=== PATIENT | female | born 1975 | race Caucasian/White ===

== ENCOUNTER 2017-04-18 09:39 | Outpatient (CLI) | payer OTHER ==
[2017-04-18 11:44] LABS: #Eosinphils 0.1 thou/uL (0.0-0.7); #Monocytes 0.4 thou/uL (0.11-0.59); #Neutrophils 2.2 thou/uL (1.40-6.50); %Basophils 0.1 % (0.0-1.0); %Eosinophils 1.4 % (0.0-10.0); %Lymphocytes 43.5 % (21.0-51.0); %Monocytes 7.4 % (0.0-10.0); Hematocrit 36.9 % (36.0-47.0); Mean Platelet Volume 6.2 fL (7.4-10.4); Red Blood Cell (RBC) Count 3.95 mill/uL (4.20-5.40); White Blood Cell (WBC) Count 4.7 thou/uL (4.8-10.8)
[2017-04-18 12:07] LABS: Anion Gap 13 mmol/L (10-20); BUN (Urea Nitrogen) 9 mg/dL (7.0-18.7); Calc. Creatinine Clearance 0 mL/min (70-130); Calcium 9.3 mg/dL (7.8-10.44); Carbon Dioxide 22 mmol/L (22-29); Chloride 109 mmol/L (98-107); Estimated GFR-MDRD 67
--- NOTE | 2017-04-18 17:26 | OP ---
DATE OF SURGERY: 04/18/2017 PREOPERATIVE DIAGNOSIS: Ventral hernia. POSTOPERATIVE DIAGNOSIS: Ventral hernia. PROCEDURE: Da Ronnie laparoscopic ventral hernia repair with mesh 6 cm Ventralex. SURGEON: Clarence Buchanan MD ANESTHESIA: General. ESTIMATED BLOOD LOSS: Minimal. COMPLICATIONS: None. SPECIMEN: None. TECHNIQUE: The patient was taken to the operating room and placed supine on the table. After genera l anesthetic was obtained, a Braun was placed. The abdomen was prepped and draped in a sterile fashi on. Left subcostal 12-mm Ethicon Optiview trocar was placed in the usual fashion and high-flow pneum operitoneum was obtained. Left and right abdominal 8 mm robot trocars were placed. The patient was placed in slight Trendelenburg position. The patient had a lot of her preperitoneal fat up in the he rnia in the area of the umbilicus. The umbilical ligament and fat tissue was stuck up in the hernia as well. This was all reduced down and cautery was used to take it off of the posterior fascia. Thi s exposed the ventral umbilical defect that was closed by running a transverse V-Loc suture. This co mpletely closed the defect. A piece of 6 cm Ventralex mesh was brought into the abdominal cavity. T he mesh side was placed up against the posterior fascia the nonadherence side left down. The needle from the V-Loc was used to hold it up in the center over the closed defect. Running Stratafix suture was used to affix the mesh circumferentially to the posterior fascia by running it starting at the 1 2 o'clock position and running it all the way around and tying it to itself. The hernia defect was c ompletely closed, the mesh placed flat against the abdominal wall. There was no injury to any intraa bdominal structures. All needles were removed through the 12-mm trocar. All port sites were infiltr ated using local anesthetic. All ports were removed under direct visualization without bleeding. Pn eumoperitoneum was let down. GraNee needle and 0 Vicryl tie had been used to close the fascial defec t at the subcostal incision. A 4-0 Monocryl and Dermabond used to close all skin incisions. The pat ient was en route to recovery in stable condition. All instrument counts, needle counts, and lap cou nts were correct.
== END 2017-04-18 09:40 | disposition home or self-care (01) ==
LOC: LABBT 09:39
PROVIDERS: ATTEND Surgery
DX: Z01.812 Encounter for preprocedural laboratory examination (principal); K41.90 Unilateral femoral hernia, without obstruction or gangrene, not specified as recurrent
CPT/HCPCS: 80048; 84703; 85025

== ENCOUNTER 2017-04-21 11:34 | Day surgery (SDC) | payer OTHER ==
[2017-04-18 10:12] VITALS: BMI 25.5
[2017-04-21] MEDS ORDERED: CEFAZOLIN/Water 2 GM/20 ML SYRINGE ONE (12:28)
[2017-04-21] MEDS ORDERED: Fentanyl 100 MCG/2 ML VIAL ONE (13:40)
[2017-04-21] MEDS ORDERED: Midazolam HCl 2 mg/2 ml Vial ONE ×2 (13:45→14:01)
[2017-04-21] MEDS ORDERED: Bupivacaine/Epinephrine 0.25% 30 ML VIAL ONE (13:55)
[2017-04-21] MEDS ORDERED: Metoclopramide HCl 10 MG/2 ML VIAL ONE (14:13)
[2017-04-21] MEDS ORDERED: Lidocaine 1% PF 5 ML VIAL ONE (14:13)
[2017-04-21] MEDS ORDERED: Dexamethasone 20 MG/5 ML VIAL ONE (14:13)
[2017-04-21] MEDS ORDERED: Propofol 200 MG/20 ML VIAL ONE (14:13)
[2017-04-21] MEDS ORDERED: Bupivacaine PF 0.5% 30 ML VIAL ONE ×2 (14:41→15:20)
--- NOTE | 2017-04-21 17:12 | OP ---
DATE OF SERVICE: 04/21/2017 PREOPERATIVE DIAGNOSIS: Right inguinal hernia. POSTOPERATIVE DIAGNOSES: Right inguinal hernia plus lymphadenopathy. PROCEDURE: 1. Right inguinal hernia repair with mesh, preshaped polypropylene. 2. Excision lymph node, right groin. SURGEON: Clarence Buchanan M.D. ANESTHESIA: General. ESTIMATED BLOOD LOSS: Minimal. COMPLICATIONS: None. FINDINGS: There is a group of mildly enlarged lymph nodes in the right axilla in area of the patient 's palpable concern; this small area of lymph nodes, none of the lymph nodes in out themselves were m alignantly enlarged, but they were removed for pathology. The patient did have an indirect inguinal hernia. TECHNIQUE: The patient was taken to the operating room and placed supine on the table. After genera l anesthetic was obtained, the abdomen and the right groin was shaved, and draped in a sterile fashio n. Oblique incision was made above the pubic tubercle in the right lower quadrant. Cautery was used to dissect down through the external oblique. The inguinal ligament was dissected and exposed. The femoral canal was found. There was no hernia. In the patient's area of pain and palpable concern, t here was a mass of lymph nodes. These were removed very carefully without bleeding and sent to path fresh just to rule out any malignant lymphadenopathy. Next, the external oblique fibers were opened a long their course to the external ring. The round ligament was brought up using a Donato drain. It was cauterized and transected distally. The proximal and a small indirect hernia sac was dissected out and high ligation was performed using silk. The stump was inverted back into the indirect ring. The ilioinguinal nerve was found and segmentally high removed to prevent postop pain. The precut po lypropylene mesh was brought into the sterile field and an overlay in the inguinal floor was placed. It was sewn to the pubic tubercle distally, the shelving edge of the inguinal ligament laterally and the transverse arch medially using permanent braided suture. Local anesthetic was applied. Tunnele d catheter for postop pain is threaded above the incision and left on top of the mesh for postop pain control. External oblique and Irena were closed using 3-0 Vicryl. The skin was closed using runni ng 4-0 Monocryl and Dermabond. The patient was en route to recovery in stable condition. All instru ment counts, needle counts, and lap counts were correct.
== END 2017-04-21 16:18 | disposition home or self-care (01) ==
LOC: SDC 11:34
PROVIDERS: ATTEND Surgery
PROC: 0YU50JZ Supplement Right Inguinal Region with Synthetic Substitute, Open Approach (ICD-10-PCS; principal; 2017-04-21)
PROC: 07BH0ZX Excision of Right Inguinal Lymphatic, Open Approach, Diagnostic (ICD-10-PCS; principal; 2017-04-21)
DX: K40.30 Unilateral inguinal hernia, with obstruction, without gangrene, not specified as recurrent (principal); R59.0 Localized enlarged lymph nodes; M19.90 Unspecified osteoarthritis, unspecified site; Z79.3 Long term (current) use of hormonal contraceptives; Z96.9 Presence of functional implant, unspecified; Z98.890 Other specified postprocedural states
CPT/HCPCS: 88184; 88305; A4306; C1781; J1100; J2001; J2250; J2704; J2765; J3010; S0020

== ENCOUNTER 2019-12-20 06:46 | Outpatient (CLI) | payer BC, OTHER ==
[2019-12-20 14:01] LABS: BHCG - Serum Negative (NEGATIVE); Pregs Control Background? CLEAR/WHITE (CLR/WHITE); Pregs Control Bar Appear? YES (CONTROL BAR)
[2019-12-20 14:05] LABS: #Eosinphils 0.1 thou/uL (0.0-0.7); #Lymphocytes 2.1 thou/uL (1.20-3.40); #Monocytes 0.5 thou/uL (0.11-0.59); #Neutrophils 4.1 thou/uL (1.40-6.50); %Basophils 0.5 % (0.0-1.0); %Eosinophils 1.3 % (0.0-10.0); %Lymphocytes 31.2 % (21.0-51.0); %Monocytes 7.7 % (0.0-10.0); %Neutrophils 59.3 % (42.0-75.0); Hemoglobin 12.7 g/dL (12.0-16.0); Mean Corpuscular HGB CONC 33.7 g/dL (32.0-36.0); Mean Corpuscular Hemoglobin 31.6 pg (27.0-31.0); Mean Corpuscular Volume 93.8 fL (78.0-98.0); Platelet Count 292 thou/uL (130-400); RBC Distribution Width 11.2 % (11.5-14.5); Red Blood Cell (RBC) Count 4.03 mill/uL (4.20-5.40); White Blood Cell (WBC) Count 6.8 thou/uL (4.8-10.8)
[2019-12-21 12:21] LABS: SARS-CoV-2 MS2 Positive; SARS-CoV-2 N Gene Negative; SARS-CoV-2 S Gene Negative; SARS-CoV-2 orf1ab Negative
== END 2019-12-20 06:47 | disposition home or self-care (01) ==
LOC: LABBT 06:46
PROVIDERS: ATTEND Orthopaedic Surgery
DX: Z01.812 Encounter for preprocedural laboratory examination (principal); Z11.59 Encounter for screening for other viral diseases; M75.111 Incomplete rotator cuff tear or rupture of right shoulder, not specified as traumatic
CPT/HCPCS: 84703; 85025; 87635; U0003

== ENCOUNTER 2019-12-23 08:45 | Day surgery (SDC) | payer BC ==
[2019-12-17 09:19] VITALS: BMI 26.6
[2019-12-23] MEDS ORDERED: Ropivacaine 0.5% HCl/PF (150 MG/30 ML VIAL) ONE ×2 (09:27→09:28)
[2019-12-23] MEDS ORDERED: Ropivacaine 0.2% HCl/PF (40 MG/20 ML VIAL) ONE ×2 (09:27→09:28)
[2019-12-23] MEDS ORDERED: PROPOFOL 200 MG/20 ML VIAL ONE (09:28)
[2019-12-23] MEDS ORDERED: diphenhydrAMINE 50 MG/ML VIAL ONE (09:28)
[2019-12-23] MEDS ORDERED: Glycopyrrolate 0.2 MG/ML 5 ML SYRINGE ONE (09:28)
[2019-12-23] MEDS ORDERED: Rocuronium Bromide 10 MG/ML (10ML VIAL) ONE (09:28)
[2019-12-23] MEDS ORDERED: Dexamethasone 20 MG/5 ML VIAL ONE (09:28)
[2019-12-23] MEDS ORDERED: Ketorolac Tromethamine 30 MG/ML VIAL ONE (09:28)
[2019-12-23] MEDS ORDERED: Lidocaine 1% PF 5 ML VIAL ONE (09:28)
[2019-12-23] MEDS ORDERED: PHENYLEPHRINE-NS 100 MCG/ML 10 ML SYRINGE ONE (09:28)
[2019-12-23] MEDS ORDERED: EPHEDRINE 25 MG/5 ML SYRINGE ONE (09:28)
[2019-12-23] MEDS ORDERED: Fentanyl 100 MCG/2 ML VIAL ONE ×3 (10:40→14:49)
[2019-12-23] MEDS ORDERED: Midazolam HCl 2 mg/2 ml Vial ONE (10:40)
[2019-12-23] MEDS ORDERED: Ondansetron PF 4 MG/2 ML Vial IVP PRN (12:07)
[2019-12-23] MEDS ORDERED: Ropivacaine 0.2% 550 ML 550 ML NERVE BLCK SCH (12:07)
[2019-12-23] MEDS ORDERED: HYDROcodone/Acetaminophen 10/325 mg Tablet PO PRN ×2 (12:07)
[2019-12-23] MEDS ORDERED: traMADol HCl 50 MG TAB PO PRN ×2 (12:07)
[2019-12-23] MEDS ORDERED: Zolpidem Tartrate 5 MG TAB PO PRN (12:07)
[2019-12-23] MEDS ORDERED: Promethazine HCl 25 MG/ML VIAL IM PRN (12:07)
[2019-12-23] MEDS ORDERED: Fentanyl 100 MCG/2 ML VIAL IV PRN (12:08)
[2019-12-23] MEDS ORDERED: Lidocaine 1% w/Epinephrine 1:100K 20 ML VIAL ONE (12:58)
--- NOTE | 2019-12-23 20:01 | OP ---
DATE OF PROCEDURE: 12/23/2019 PREOPERATIVE DIAGNOSIS: Right high-grade partial-thickness rotator cuff tear supraspinatus. POSTOPERATIVE DIAGNOSES: 1. Right high-grade partial-thickness rotator cuff tear, greater than 50%. 2. Partial subscapularis tear less than 5%, not repairable. PROCEDURE PERFORMED: 1. Right rotator cuff repair. 2. Limited debridement of right subscapularis. NUMERICAL CONTROL LATHE OPERATOR: None. ANESTHESIA: Dr. Ananth Hensley. The patient received a general endotracheal intubation with interscalene block. ESTIMATED BLOOD LOSS: Less than 30 mL. ANTIBIOTICS: Ancef 2 g. IMPLANTS: Two 4.75 SwiveLock. COMPLICATIONS: None. HISTORY OF PRESENT ILLNESS: Mrs. Swift is a pleasant 44-year-old female, presenting with long history of right shoulder pain. The patient is active in Cross[employer]. She had pain with her activities. The Patient had MRA of her right shoulder showing a moderate undersurface tear of the supraspinatus tendon. After a period of conservative management, which she failed, she elected to proceed with surgical intervention. I discussed risks and benefits of right rotator cuff repair with possible biceps tenodesis and subacromial decompression as needed. I discussed risks and benefits to include pain, scar, bleeding, infection, damage to vital structures, decreased range of motion or strength, need for further surgery, blood clots, loss of life or limb. The patient understood risks and benefits and elected to proceed. DESCRIPTION OF PROCEDURE: Time-out was performed designating the patient's right upper extremity as the operative site based on site, consents, and marking. After time-out, the patient's posterior working portal and anterior working portal were placed under direct visualization with a spinal needle, looked within the joint. The patient had some fraying of her labrum, but there was no superior labral tear. The biceps looked good throughout its course. The subscapularis at the leading edge had just about a 5% tear. I used a graft to see if I could grab a component of it to tack it down into its footprint, but there was not enough tissue plane to tack down. Therefore, I debrided just the leading edge near its insertion of footprint. The biceps looked good and she appeared essentially reduced within its sling, reduced within the groove. The patient's undersurface tear was noted, which was debrided intra-articularly. I took a spinal needle and placed a Prolene in the large portion of the defect from the skin to allow myself to map out the tear. I then moved from the patient's intra-articular space showing no glenoid or humeral articular defects, moved subacromially. I debrided the bursa and placed a lateral working portal for my shaver to expose. I did remove all the bursa. After exposing the bursa, I looked at my spinal needle. As I probed across and where the Prolene was at, there was a soft spot which I fell into the defect. I created a little footprint both on the bone as well as the surface of the cuff. I placed an awl and tapped for 4.75 SwiveLock, passed 4 suture limbs from the back, tied them back to front for 2 horizontal mattress sutures and placed a lateral row to compress the anchor down laterally to help with compression of the cuff to the bone. I then cut the sutures, took final pictures, washed and closed with 2-0 nylon. ASSESSMENT AND PLAN: The patient will be discharged home. She will follow up me in 2 weeks. She will be on elbow, wrist, and hand motion, overhead activities, and remain in her sling until followup. Job ID: [id number]
== END 2019-12-23 17:12 | disposition home or self-care (01) ==
LOC: SDC 08:45
PROVIDERS: ATTEND Orthopaedic Surgery
PROC: 3E0T3BZ Introduction of Anesthetic Agent into Peripheral Nerves and Plexi, Percutaneous Approach (ICD-10-PCS; principal; 2019-12-23)
PROC: 0RNJ4ZZ Release Right Shoulder Joint, Percutaneous Endoscopic Approach (ICD-10-PCS; principal; 2019-12-23)
PROC: 0LQ14ZZ Repair Right Shoulder Tendon, Percutaneous Endoscopic Approach (ICD-10-PCS; principal; 2019-12-23)
DX: M75.111 Incomplete rotator cuff tear or rupture of right shoulder, not specified as traumatic (principal); G89.18 Other acute postprocedural pain; M19.90 Unspecified osteoarthritis, unspecified site; Z79.899 Other long term (current) drug therapy
CPT/HCPCS: A4306; C1713; J0690; J2250; J2795; J3010

== ENCOUNTER 2019-12-26 15:07 | Inpatient (IN) | payer BC, OTHER ==
[~2019-12-26 15:07] MED LIST: Iopamidol-370 76% 500 ML 1 ML ONE
[2019-12-26] MEDS ORDERED: Ketorolac Tromethamine 30 MG/ML VIAL ONE (16:06)
[2019-12-26 16:21] LABS: #Eosinphils 0.1 thou/uL (0.0-0.7); #Lymphocytes 1.5 thou/uL (1.20-3.40); #Monocytes 0.9 thou/uL (0.11-0.59); #Neutrophils 7.3 thou/uL (1.40-6.50); %Basophils 0.2 % (0.0-1.0); %Eosinophils 1.1 % (0.0-10.0); %Lymphocytes 15.1 % (21.0-51.0); %Monocytes 8.7 % (0.0-10.0); %Neutrophils 74.9 % (42.0-75.0); Hemoglobin 12.9 g/dL (12.0-16.0); Mean Corpuscular HGB CONC 33.2 g/dL (32.0-36.0); Mean Corpuscular Hemoglobin 31.3 pg (27.0-31.0); Mean Corpuscular Volume 94.4 fL (78.0-98.0); Mean Platelet Volume 6.2 fL (7.4-10.4); Platelet Count 213 thou/uL (130-400); RBC Distribution Width 11.1 % (11.5-14.5); White Blood Cell (WBC) Count 9.8 thou/uL (4.8-10.8)
[2019-12-26 16:24] LABS: Bilirubin Negative (Negative); Blood, Urine Negative (Negative); Clarity Clear (Clear); Glucose, Urine (Dipstick) Normal (Negative); Ketone, Urine Negative (Negative); Leukocyte Negative Leu/uL (Negative); Nitrite Negative (Negative); Protein, Urine (Dipstick) Negative (Neg-Trace); Specific Gravity, Urine 1.006 (1.002-1.036); Urobilinogen Normal mg/dL (Less than 2); pH, Urine 8.5 (5.0-9.0)
[2019-12-26 16:47] LABS: ALT (SGPT) 12 U/L (8-55); AST (SGOT) 19 U/L (5-34); Albumin 3.7 g/dL (3.5-5.0); Alkaline Phosphatase 43 U/L (40-110); Anion Gap 13 mmol/L (10-20); BUN (Urea Nitrogen) 14 mg/dL (7.0-18.7); Bilirubin, Total 0.4 mg/dL (0.2-1.2); Calc. Creatinine Clearance 0 mL/min (70-130); Calcium 8.8 mg/dL (7.8-10.44); Carbon Dioxide 25 mmol/L (22-29); Chloride 103 mmol/L (98-107); Estimated GFR-MDRD 57; Globulin 2.7 g/dL (2.4-3.5); Glucose 85 mg/dL (70-105); Potassium 3.9 mmol/L (3.5-5.1); Protein, Total 6.4 g/dL (6.0-8.3); Sodium 137 mmol/L (136-145)
[2019-12-26] MEDS ORDERED: Enoxaparin Sodium 80 MG/0.8 ML SYRINGE ONE (17:40)
[2019-12-26 17:57] LABS: Prothrombin Time 12.9 sec (12.0-14.7)
--- NOTE | 2019-12-26 19:07 | CT ---
CT ANGIO CHEST PERFORMED WITH INTRAVENOUS CONTRAST ENHANCEMENT AND 3D RECONSTRUCTIONS: History: Patient had rotator cuff repair on 12-23-2019 and was ==== interscalene block catheter today. FINDINGS: There are soft tissues changes in the right axillary region and air in the right supraclavicular demetris on compatible with recent surgery. There is a large right lobe thyroid nodule that measures approxim ately 2.4 cm and should be further investigated with ultrasound. There are subsegmental atelectatic changes in the right lung base. There is fairly good pulmonary artery opacification. There is extensive bilateral, predominately lowe r lobe emboli, but also upper lobe emboli bilaterally. . Pulmonary arteries not dilated. I do not see any definite signs for right heart strain. No significant periaortic or mesenteric adenopathy. Visualized liver parenchyma shows no focal findings. IMPRESSION: 1. Extensive bilateral pulmonary emboli. 2. 2.4 cm right lobe thyroid nodule which needs to be further investigated with ultrasound. 3. This report was telephoned to Dr. Adames at the time of dictation. Code T POS: ANTHONY
[2019-12-26] MEDS ORDERED: HYDROcodone/Acetaminophen 5/325 mg Tablet ONE (19:24)
[2019-12-26] MEDS ORDERED: Ondansetron PF 4 MG/2 ML Vial IVP PRN (19:42)
[2019-12-26] MEDS ORDERED: Ondansetron ODT 4 MG TAB PO PRN (19:42)
[2019-12-26] MEDS ORDERED: HYDROcodone/Acetaminophen 5/325 mg Tablet PO PRN (19:42)
[2019-12-26 20:46] VITALS: BMI 27.0
[2019-12-26 21:06] LABS: Troponin I Less than 0.010 ng/mL (< 0.028)
--- NOTE | 2019-12-26 21:54 | HP ---
PRIMARY CARE PHYSICIAN: Shyla Goldsmith in [place]. CHIEF COMPLAINT: "I passed out." HISTORY OF PRESENT ILLNESS: The patient is a very pleasant 44-year-old female with past medical history significant for right rotator cuff surgery three days ago and hypothyroidism. She presents to the ER today after she passed out when her nerve block was removed at home that had been placed when she had an outpatient right rotator cuff surgery. For the past few days, she has been experiencing some right-sided back pain, which she attributed to working out as she does [employer] regularly. She stated that she has been sleeping on the couch to try and alleviate the pain. She has been unable to take a deep breath for a couple days, which she thought was normal after her surgery. She denies any trauma. Today, whenever her removed the nerve block, she stated that she felt a little lightheaded, so she sat down and then she passed out. Her woke her up and EMS was already on the way. She had no recollection of that time when he was trying to wake her up. No injury during the syncopal episode. She denies any cough, fever, abdominal pain, chest pain, or diaphoresis. Denies the feeling of shortness of breath, but does state that she has been unable to take a deep breath for a few days.Today in the ER, they completed lab work, urinalysis, EKG, and a chest thorax CTA. PAST MEDICAL HISTORY: Hypothyroid. PAST SURGICAL HISTORY: Right rotator cuff, lumbar fusion, left knee scope, and left great toe pinned. ALLERGIES: NO KNOWN DRUG ALLERGIES. MEDICATIONS: 1. Levothroid 75 mcg daily. 2. Vitamin B12 of 1000 mcg daily. SOCIAL HISTORY: The patient lives at home with her . Drinks alcohol occasionally. Denies any drug or tobacco use. FAMILY HISTORY: Dad had heart problems. Daughter has pulmonary stenosis. REVIEW OF SYSTEMS: All other review of systems was negative unless noted in the HPI. PHYSICAL EXAMINATION: VITAL SIGNS: Blood pressure 103/70, pulse 68, respiratory rate 23, pain 10, and O2 saturation 100% on room air. GENERAL: The patient is alert and oriented to person, place, and time. Appears nontoxic. HEAD: Atraumatic and normocephalic. EYES: Extraocular muscles intact. PERRLA. NECK: Normal range of motion. No tenderness. RESPIRATORY: Shallow breathing. Equal breath sounds bilaterally. No wheezing. Mild tenderness to the right chest wall. CARDIOVASCULAR: Regular rate and rhythm. No murmurs, no rubs, no gallops. ABDOMEN: Nontender. No distention. Normal bowel sounds. UPPER EXTREMITIES: Three incisions with stitches to the right shoulder with mild ecchymosis. Pain with range of motion. LOWER EXTREMITIES: Normal range of motion. Posterior tibial and pedal pulses are normal. No edema. No cyanosis. NEURO: Oriented to person, place, and time. Speech normal. SKIN: Warm, dry, and intact. LABORATORY AND IMAGING DATA: EKG showed normal sinus rhythm, 68 beats per minute. Chest and thorax CTA shows extensive bilateral pulmonary emboli and a 2.4 cm right lobe thyroid nodule. Urinalysis shows no acute signs of infection. White blood cells 9.8, red blood cells 4.10, hemoglobin 12.9, and hematocrit 38.7. PT 12.9 , INR 1.0, and APTT 22.3. Sodium 137, potassium 3.9, chloride 103, BUN 14, creatinine 1.04, GFR 57, glucose 85, and troponin 0.020. IMPRESSION AND PLAN: Bilateral pulmonary emboli. We will start the patient on full-dose Lovenox b.i.d. We will continue to monitor O2 sats and vitals. We will treat the patient for pain and syncopal episode. We will obtain a carotid Doppler, echo, and orthostatic vital signs. Most likely from a vasovagal reaction when the nerve block was pulled however we do want to rule out any possible cardiac and neuro causes. There was a nodule on her thyroid that radiology feels should be followed up with ultrasound- will defer to day team on whether they want to pursue that inpatient or as an outpatient scan. Hypothyroidism, we will continue patient on her home medication. The patient will be on full dose Lovenox for bilateral PE and for further VTE prophylaxis. She will be on Pepcid twice a day for GI prophylaxis. Her surrogate decision maker is her , Kye. She wishes to be a full code. The patient has been discussed with Dr. Briones. Job ID: [id number] MTDD
[2019-12-26] MEDS: HYDROcodone/Acetaminophen 5/325 mg Tablet PO PRN (22:15)
[2019-12-26] MEDS: Docusate 100 MG CAP PO SCH (22:15)
[2019-12-26] MEDS: Famotidine 20 MG TAB PO SCH (22:15)
[2019-12-26 23:36] LABS: Troponin I 0.016 ng/mL (< 0.028)
[2019-12-27] MEDS: HYDROcodone/Acetaminophen 5/325 mg Tablet PO PRN ×5 (02:20→21:30)
[2019-12-27 04:22] LABS: #Eosinphils 0.1 thou/uL (0.0-0.7); #Monocytes 0.6 thou/uL (0.11-0.59); %Basophils 0.4 % (0.0-1.0); %Lymphocytes 29.8 % (21.0-51.0); %Neutrophils 58.7 % (42.0-75.0); Hemoglobin 11.1 g/dL (12.0-16.0); Mean Corpuscular HGB CONC 33.6 g/dL (32.0-36.0); Mean Corpuscular Hemoglobin 31.2 pg (27.0-31.0); Mean Platelet Volume 6.7 fL (7.4-10.4); Platelet Count 187 thou/uL (130-400); RBC Distribution Width 11.1 % (11.5-14.5); Red Blood Cell (RBC) Count 3.57 mill/uL (4.20-5.40); White Blood Cell (WBC) Count 6.8 thou/uL (4.8-10.8)
[2019-12-27 04:31] LABS: PTT 30.6 sec (22.9-36.1)
[2019-12-27 04:32] LABS: INR-International Normal Ratio 1.1; Prothrombin Time 13.8 sec (12.0-14.7)
[2019-12-27 04:40] LABS: Anion Gap 10 mmol/L (10-20); BUN (Urea Nitrogen) 10 mg/dL (7.0-18.7); Calc. Creatinine Clearance 97 mL/min (70-130); Calcium 8.2 mg/dL (7.8-10.44); Carbon Dioxide 24 mmol/L (22-29); Chloride 107 mmol/L (98-107); Estimated GFR-MDRD 74; Glucose 96 mg/dL (70-105); Potassium 3.8 mmol/L (3.5-5.1); Sodium 137 mmol/L (136-145)
--- NOTE | 2019-12-27 08:03 | PDOC.HOSPP ---
- Subjective Encounter Date: 12/27/19 Encounter Time: 08:03 Subjective: Mrs. Swift says she is doing well this morning. She states that she slept well once she was given her pain meds. She is still in 5/10 pain this morning after receiving her meds. She says that as her meds begin to wean off at the end of the 4 hour period she approaches 10/10 pain. The pain is located in her R shoulder from her procedure (s/p day 5 from rotator cuff surgery), as well as in both flanks and lateral ribs. She says that the flank pain is worse on her left and radiates down her leg, but she has a bone spur in her L SI joint so she commonly has similar pain on the left. She has mild discomfort on deep inspiration. Other pertinent PMHx includes hypothyroidism for which she takes levothyroxine at home. She denies any productive cough or hemoptysis, blood in the stool, palpitations , or dizziness. - Objective Vital Signs & Weight: Vital Signs (12 hours) Temp Pulse Resp BP Pulse Ox 12/27/19 04:15 98.1 F 49 L 14 105/65 97 12/26/19 20:43 98.0 F 62 14 114/77 98 Weight Weight 157 lb 9.6 oz Result Diagrams: 12/27/19 03:56 12/27/19 03:56 Additional Labs: labs and MARs reviewed by me EKG Reviewed by me: Yes (Tele: NSR) Hospitalist ROS - Review of Systems Eyes: denies: vision change Respiratory: reports: cough (nonproductive), shortness of breath. denies: hemoptysis, sputum Cardiovascular: denies: palpitations, edema Gastrointestinal: denies: vomiting, abdominal pain Neurological: denies: weakness, numbness - Medication Medications: Active Medications Generic Name Dose Route Start Last Admin Trade Name Freq PRN Reason Stop Dose Admin Hydrocodone Bitart/Acetaminophen 2 tab 12/26/19 19:42 12/27/19 07:12 [place] 5/325 PO 2 tab Q4H PRN Administration Severe Pain (7-10) Docusate Sodium 100 mg 12/26/19 21:00 12/26/19 22:15 Colace PO 100 mg BID MAYLIN Administration Famotidine 20 mg 12/26/19 21:00 07/26/20 22:15 Pepcid PO 20 mg BID MAYLIN Administration - Exam General Appearance: NAD, awake alert Neck: no thyromegaly Heart: RRR, no murmur Respiratory: CTAB, no tachypnea Extremities: no edema Hosp A/P - Plan Patient is a 44 yo female that presented to ED following syncope episode as her removed her scalene nerve block from her rotator cuff surgery. She was found to have bilateral PE. Bilateral PE * Echo performed to look for CV related causes of syncope and rule out other atrial emboli * Obtain carotid doppler and orthostatics * Patient currently on lovenox * Continue to monitor O2 sats and vitals * d/c oral contraceptives Postop shoulder surgery * Patient is currently on [place] but is still in severe pain * Possibly consider something stronger for adequate pain control Hypothyroidism * Obtain TSH and free T4 * Continue home levothyroxine Chart reviewed. Pt seen. Agree with findings and plan of care as documented by [facility]. Discussed with pt r: treatment options. Benefits, risks and side-effects of various anticoagulants were discussed. Pt wishes to start apixaban. Thyroid US ordered to evaluate thyroid nodule.
[2019-12-27] MEDS ORDERED: Enoxaparin Sodium 80 MG/0.8 ML SYRINGE SC SCH (09:00)
--- NOTE | 2019-12-27 09:02 | ULT ---
CAROTID DUPLEX ULTRASOUND: INDICATION: History of PE and syncope. COMPARISON: None. FINDINGS: There is mild intimal thickening involving the common carotid arteries. Peak systolic velocity in the right ICA was 79.5 cm/second and in the right CCA was 111.6 cm/second. The right ICA/CCA ratio was 0.71. Peak systolic velocity in the left ICA was 98.4 cm/second and in the left CCA was 110.6 cm/second. Th e left ICA/CCA ratio was 0.89. Antegrade flow was seen within both vertebral arteries. IMPRESSION: No hemodynamically significant stenosis. POS: BH
[2019-12-27] MEDS: Famotidine 20 MG TAB PO SCH ×2 (09:38→21:30)
[2019-12-27] MEDS: Docusate 100 MG CAP PO SCH ×2 (09:38→21:30)
[2019-12-27] MEDS ORDERED: Levothyroxine Sodium 75 MCG TAB PO SCH (11:45)
[2019-12-27 12:36] LABS: SARS-CoV-2 MS2 Positive; SARS-CoV-2 N Gene Negative; SARS-CoV-2 S Gene Negative; SARS-CoV-2 by NAA Not Detected (NotDetected); SARS-CoV-2 orf1ab Negative
[2019-12-27 14:58] LABS: BHCG - Serum Negative (NEGATIVE); Pregs Control Background? CLEAR/WHITE (CLR/WHITE); Pregs Control Bar Appear? YES (CONTROL BAR)
[2019-12-27 15:30] LABS: Thyroid Stimulating Hormone 1.8895 uIU/mL (0.35-4.94)
--- NOTE | 2019-12-27 18:01 | ULT ---
Exam: Thyroid ultrasound HISTORY: Evaluate thyroid nodules. COMPARISON: None TECHNIQUE: Sagittal and transverse imaging of thyroid gland is FINDINGS: Thyroid isthmus measures 0.22 cm Right thyroid lobe measures 1.9 x 4.5 x 1.3 cm Left thyroid lobe measures 4.0 x 1.5 x 1.1 cm Thyroid nodules: Right thyroid lobe: Mixed solid and cystic nodule measuring 2.8 x 1.9 x 1.9 cm. IMPRESSION: Predominant solid nodule in the right thyroid lobe. BI-RADS calculator TR 4 moderately sargent spicious. Fine-needle aspiration is recommended.
[2019-12-27] MEDS: Apixaban 5 MG TAB PO SCH (21:30)
[2019-12-28 04:56] LABS: #Eosinphils 0.2 thou/uL (0.0-0.7); #Lymphocytes 1.7 thou/uL (1.20-3.40); #Monocytes 0.5 thou/uL (0.11-0.59); #Neutrophils 3.5 thou/uL (1.40-6.50); %Basophils 0.6 % (0.0-1.0); %Eosinophils 2.7 % (0.0-10.0); %Lymphocytes 29.1 % (21.0-51.0); %Monocytes 9.1 % (0.0-10.0); %Neutrophils 58.4 % (42.0-75.0); Hemoglobin 10.7 g/dL (12.0-16.0); Mean Corpuscular HGB CONC 31.7 g/dL (32.0-36.0); Mean Corpuscular Hemoglobin 29.6 pg (27.0-31.0); Mean Corpuscular Volume 93.3 fL (78.0-98.0); Platelet Count 205 thou/uL (130-400); White Blood Cell (WBC) Count 5.9 thou/uL (4.8-10.8)
[2019-12-28 05:20] LABS: Anion Gap 10 mmol/L (10-20); BUN (Urea Nitrogen) 6 mg/dL (7.0-18.7); Calc. Creatinine Clearance 101 mL/min (70-130); Calcium 8.5 mg/dL (7.8-10.44); Carbon Dioxide 25 mmol/L (22-29); Chloride 105 mmol/L (98-107); Estimated GFR-MDRD 79; Glucose 109 mg/dL (70-105); Potassium 3.6 mmol/L (3.5-5.1); Sodium 136 mmol/L (136-145)
[2019-12-28] MEDS: HYDROcodone/Acetaminophen 5/325 mg Tablet PO PRN (05:37)
[2019-12-28] MEDS ORDERED: Levothyroxine Sodium 75 MCG TAB PO SCH (06:00)
[2019-12-28] MEDS ORDERED: Acetaminophen/Codeine 30-300mg Tablet PO PRN ×2 (07:42)
--- NOTE | 2019-12-28 07:47 | PDOC.HOSPP ---
- Subjective Encounter Date: 12/28/19 Encounter Time: 07:00 Subjective: Mrs. Swift is doing well this morning. She is still in 7/10 pain with deep inspiration. She did not sleep much last night due to caffeine intake around midnight. She is wanting to begin weaning herself off of the Keo, even though she is still in pain. Denies N/V, shortness of breath, dizziness, changes in vision or hearing. - Objective Vital Signs & Weight: Vital Signs (12 hours) Temp Pulse Resp BP Pulse Ox 12/28/19 04:48 98.1 F 50 L 17 114/66 98 12/27/19 21:00 98.1 F 60 14 112/65 98 Weight Weight 157 lb 9.6 oz I&O: 12/27/19 12/28/19 12/29/19 06:59 06:59 06:59 Intake Total 480 Balance 480 Result Diagrams: 12/28/19 04:00 12/28/19 04:00 Hospitalist ROS - Review of Systems Constitutional: denies: fever, chills, sweats Respiratory: reports: pleuritic pain. denies: cough, shortness of breath Cardiovascular: reports: chest pain (with deep inspiration). denies: light headedness Gastrointestinal: denies: nausea, vomiting Neurological: denies: weakness, numbness All other systems reviewed; all pertinent +/- noted in HPI/Subj - Medication Medications: Active Medications Generic Name Dose Route Start Last Admin Trade Name Freq PRN Reason Stop Dose Admin Apixaban 10 mg 12/27/19 21:00 12/27/19 21:30 Eliquis PO 10 mg BID MAYLIN Administration Docusate Sodium 100 mg 12/26/19 21:00 12/27/19 21:30 Colace PO 100 mg BID MAYLIN Administration Famotidine 20 mg 12/26/19 21:00 12/27/19 21:30 Pepcid PO 20 mg BID MAYLIN Administration Levothyroxine Sodium 75 mcg 12/28/19 06:00 12/28/19 05:38 Synthroid PO 75 mcg 0600 MAYLIN Administration - Exam General Appearance: NAD, awake alert Eye: PERRL, anicteric sclera Neck: supple, no JVD Heart: RRR, no murmur Respiratory: CTAB, no wheezes Gastrointestinal: non-tender, normal bowel sounds Extremities: no cyanosis, no edema Skin: normal turgor Neurological: cranial nerve grossly intact, no focal deficits Psychiatric: normal affect, normal behavior, A&O x 3 Hosp A/P - Plan Patient is a 44 yo female that presented to ED following syncope episode as her removed her scalene nerve block from her rotator cuff surgery. She was found to have bilateral PE. Bilateral PE * Echo performed to rule out CV related causes of syncope and rule out other atrial emboli * Carotid doppler showed no significant findings * Patient received lovenox yesterday, no longer receiving * Received first dose of apixiban this morning * Continue to monitor O2 sats and vitals * d/c oral contraceptives * CT w/ contrast of abdomen and pelvis ordered to rule out malignancy Postop shoulder surgery * d/c Keo, patient started on Tylenol 3 * Patient reports most of her pain is from pleuritic chest pain, not from her surgery * Ortho came and saw her yesterday and said they have no concerns Hypothyroidism * TSH was normal at 1.89 * Continue home levothyroxine * US showed a solid nodule in the R lobe of the thyroid, recommended FNA to be performed today Chart reviewed. Pt seen. Agree with findings and plan of care as documented by MS3. Discussed with pt r: treatment options. Benefits, risks and side-effects of various anticoagulants were discussed. Pt wishes to start apixaban. Thyroid US ordered to evaluate thyroid nodule.
[2019-12-28] MEDS ORDERED: Docusate 100 MG CAP PO SCH (08:45)
[2019-12-28] MEDS: Apixaban 5 MG TAB PO SCH (08:48)
[2019-12-28] MEDS: Famotidine 20 MG TAB PO SCH (08:48)
[2019-12-28] MEDS: Docusate 100 MG CAP PO SCH (08:50)
[2019-12-28] MEDS ORDERED: Cyanocobalamin (Vitamin B-12) 1,000 MCG TAB PO SCH (09:00)
[2019-12-28] MEDS ORDERED: Lidocaine 5% Patch TD SCH (09:00)
--- NOTE | 2019-12-28 11:37 | CT ---
CT ABDOMEN AND PELVIS WITH IV CONTRAST: Date: 12/28/2019 INDICATION: Assess for malignancy. Thyroid mass previously described. Correlation made to CT chest of 12/26/2019 which revealed bilateral pulmonary emboli and right lobe t hyroid mass. FINDINGS: Images through lung bases show small right effusion and right posterior lower lobe atelectasis, which has developed since the prior study. Liver, spleen, and pancreas appear unremarkable. There is a tiny, subcentimeter, low density focus in the more inferior left lobe of the liver which is indeterminate, possibly a tiny cyst. Stomach and duodenum unremarkable. Adrenal glands appear normal. Kidneys unremarkable. Small bowel loops appear normal. Colon unremarkable with prominent stool in the right colon. Aorta normal caliber. Images through the pelvis show mildly distended urinary bladder with mild urinary bladder wall thicke lance. Uterine fundus is mildly prominent. Adnexa appears unremarkable. There is small volume free flu id in the cul-de-sac. Osseous structures show postoperative changes at L5-S1 with pedicle screws and disc implant. IMPRESSION: 1. Small right pleural effusion and right lung base atelectasis has occurred since recent CT. 2. Mildly prominent uterus and small amount of free fluid in the cul-de-sac. 3. Otherwise no acute intra-abdominal process identified. POS: AH
--- NOTE | 2019-12-28 14:54 | DIS ---
DATE OF ADMISSION: 12/26/2019 DATE OF DISCHARGE: 12/28/2019 PRIMARY CARE PROVIDER: Candace Goldsmith MD DISCHARGE DIAGNOSES: 1. Pulmonary embolism. 2. Thyroid nodule. 3. COVID test, negative. CONDITION: Condition of the patient on the day of discharge: Stable. I assessed Ms. Swift on the day of discharge. Please refer to my daily progress note for further details regarding this [id number] encounter. CONSULTATIONS DURING THIS HOSPITALIZATION: ENT, Dr. Valente Aguilar. DISCHARGE MEDICATIONS: 1. Apixaban 10 mg 2 times a day for 6 more days, followed by 5 mg two times a day. 2. Tylenol No. 3 one tablet every 6 hours as needed. 3. Synthroid 75 mcg daily. 4. Vitamin B12 of 1000 mcg daily. She has been advised to discontinue oral contraceptives. HOSPITAL COURSE: Ms. Swift is a pleasant 44-year-old lady, who was admitted to [facility] on December 26, 2019, for bilateral pulmonary emboli. She was initially treated with Lovenox. After discussion with the patient, she opted to be treated with apixaban after discussing risks versus benefits of various anticoagulants. CT angiogram of the chest done at the time of admission also showed thyroid nodule. She had a normal TSH. She went on to have thyroid ultrasound, which showed predominant solid nodule in the right thyroid lobe, BI-RADS calculator TR4, moderately suspicious. Fine-needle aspiration was recommended. She was seen by ENT Service. She is being scheduled for biopsy as outpatient. She also had CT scan of the abdomen and pelvis, which showed a small right pleural effusion and right lung base atelectasis, mildly prominent uterus and small amount of free fluid in the cul-de-sac, otherwise no acute intraabdominal process. POST-ACUTE CARE FOLLOWUP: With primary care provider in [address] Aguilar in 1 week. ACTIVITY: No restrictions. DIET: Regular. DISCHARGE DESTINATION: Home. TIME SPENT: Total amount of time spent in coordinating this discharge: 25 minutes. Job ID: [id number]
[2019-12-28] MEDS ORDERED: Iopamidol 370 76% 100 ML VIAL ONE (15:38)
[2019-12-28 16:23] VITALS: BP 112/69; TEMP 97.6
[2019-12-28] MEDS ORDERED: Lidocaine Patch Removal 1 EACH TOP SCH (21:00)
--- NOTE | 2019-12-30 06:20 | CON ---
DATE OF CONSULTATION: CHIEF COMPLAINT: Thyroid mass and shoulder pain as well as syncope. HISTORY OF PRESENT ILLNESS: A 44-year-old female patient, presenting to the ER today after she passed out when a nerve block was removed at home, that had been placed when she had an outpatient rotator cuff surgery. She has been experiencing some significant pain recently and has attributed to her vigorous exercise activity, but because of her significant pain and syncope, she was presented and then admitted to the hospital for workup. During her workup, which included imaging in the hospital, imaging noted a thyroid irregularity and thyroid mass, and ENT was consulted for further evaluation. PAST MEDICAL HISTORY: Hypothyroidism, and shoulder and arm pain. PAST SURGICAL HISTORY: Rotator cuff surgery, lumbar fusion, left knee arthroscopy, and foot surgery. ALLERGIES: NO KNOWN DRUG ALLERGIES. CURRENT MEDICATIONS: 1. Levothyroxine 75 mcg daily. 2. Vitamin B12, 1000 mcg daily. SOCIAL HISTORY: The patient lives at home with family and drinks a small amount of alcohol occasionally and has no tobacco or illicit drug use. FAMILY HISTORY: Noncontributory. REVIEW OF SYSTEMS: SKIN: Negative. EYES: Negative. EARS, NOSE, AND THROAT: Please see HPI, otherwise negative. RESPIRATORY: Negative. CARDIOVASCULAR: Negative. GASTROINTESTINAL: Negative. MUSCULOSKELETAL: Positive for rotator cuff pain. NEUROLOGIC: Negative. HEMATOLOGIC/LYMPHATIC/IMMUNOLOGIC: Negative. ENDOCRINE: Negative. PHYSICAL EXAMINATION: GENERAL: No acute distress. Alert and oriented x3. HEAD AND FACE: Normocephalic and atraumatic. No facial skin lesions. No maxillary tenderness. No frontal tenderness. No parotid gland masses or tenderness. No submandibular gland masses or tenderness. Eyes; pupils are equally round and reactive to light. Extraocular movements are intact and no nystagmus on lateral gaze. EARS: Right and left pinna are normal. EACs are clear. Tympanic membranes are intact with normal landmarks. No evidence of effusion or infection. NOSE : External nose is normal. Nasal mucosa is healthy. Turbinates are healthy. No masses or lesions. ORAL CAVITY: Lips, teeth, and gums are normal. Oral mucosa is moist without lesions. Tongue and floor of mouth are soft without masses. Palate and uvula without lesions with symmetric elevation. NECK: No significant lymphadenopathy. Trachea is midline. However, there is a thyroid fullness and then there is a mass that is palpable on the right side more than the left side that elevates and moves with deglutition and it is not fluctuant. There is no evidence of cellulitis or infection. NEUROLOGIC: Cranial nerves 2 through 12 are grossly intact. Mood and affect are normal. RADIOLOGY: Thyroid ultrasound performed, which shows a right thyroid lobe which measures 1.9 x 1.5 x 1.3 cm and the left thyroid lobe which measures 4.1 x 1.5 x 1.1 cm. There is right thyroid lobe, which is a mixed solid and cystic node, predominantly solid node on the right side with a BI-RADS score of T4 and recommend fine-needle aspiration. ASSESSMENT AND PLAN: A 44-year-old female patient with significant pain, status post rotator cuff surgery and syncope, which is now under better control with significant palpable thyroid nodule with a BI-RADS score of T4, recommending FNA. Given, the patient's history and hypothyroidism, we would recommend a fine- needle aspiration, which has been ordered by my team and then follow up as an outpatient for further evaluation of the pathologic results. Given the patient's age, hypothyroidism, and score, if the FNA results are suspicious of malignancy, we would recommend a thyroid lobectomy. However, if results are benign and the patient is asymptomatic, we would not recommend surgery. If monitoring and observation over time shows that the thyroid nodule is increasing in size and causing compressive symptoms, we would recommend a thyroid lobectomy for alleviation of compressive symptoms. The patient has been given follow up information and an order has been placed for an outpatient FNA. However, if any questions remain, please call [phone] for further information. Thank you for this consultation. Job ID: [id number] [facility] HEALTH SERVICESJuancarlos
--- NOTE | 2019-12-30 08:34 | PQF ---
CLINICAL DOCUMENTATION CLARIFICATION FORM: Dear : Marco Dominguez Date / Time: 12/30/19833 Please exercise your independent, professional judgment in responding to the clarification form. Clinical indicators are provided on the bottom of this form for your review Please check appropriate box(es): [ ] Pulmonary Embolism is a postoperative complication of Shoulder Surgery [ x ] Pulmonary Embolism is not a postoperative complication of Shoulder Surgery [ ] Other diagnosis [ ] Unable to determine Physician Signature: Date/Time: For continuity of documentation, please document condition throughout progress notes and discharge summary. Thank You To be completed by CDI/Coding staff for physician review: Present Clinical Indicators - Signs / Symptoms / Labs Results and Location in Medical Record [X] PT 12.9, INR 1.0, APTT 22.3 Laboratory Coagulation 12/25 [X] BP 114/77, Pulse 62, Resp 14, Temp 98.0 Vital signs 12/25 [X] CT chest/thorax Impression: Extensive Bilateral Pulmonary emboli Imaging Dr Ramirez 12/26 [X] history of significant for right rotator cuff surgery three days ago H&P p1 12/25 Dr Lr [X] has been experiencing some right side back pain H&P p1 12/25 Dr Lr [X] Bilateral Pulmonary emboli H&P p2 12/25 Dr Lr [X] She states she is been having right sided chest wall pain that is much worse whenever she takes a deep breath ED Notes 12/25 Present Risk Factors Results and Location in Medical Record [X] s/p right rotator cuff surgery Imaging Dr Ramirez 12/26 [X] Atelectasis DS 12/27 Present Treatments Results and Location in Medical Record [X] Narco 5/325 1 tab AUG 06 [X] Eliquis 10 mg oral AUG 06 [X] Lovenox 80 mg SC AUG 06 [X] CT chest/thorax Imaging Dr Ramirez 12/26 [employer] Signature: Diana Camposmarry Phone #: [phone] Date/Time: 12/30/19833 This is a permanent part of the Medical Record [facility]
== END 2019-12-28 16:15 | disposition home or self-care (01) | DRG 176 ==
LOC: ERS 15:07 → 2NO 18:08
PROVIDERS: ADMIT Internal Medicine; ATTEND Internal Medicine
DX: I26.99 Other pulmonary embolism without acute cor pulmonale (principal); J90 Pleural effusion, not elsewhere classified; J98.11 Atelectasis; E04.1 Nontoxic single thyroid nodule; E03.9 Hypothyroidism, unspecified; Z11.59 Encounter for screening for other viral diseases; Z98.1 Arthrodesis status; Z79.890 Hormone replacement therapy
CPT/HCPCS: 36415; 71275; 74177; 76536; 80048; 80053; 81003; 84443; 84484; 84703; 85025; 85610; 85730; 87635; 93005; 93306; 93880; 96372; 96374; A4306; C1713; J0690; J1100; J1200; J1650; J1885; J2250; J2704; J2795; J3010; Q9967; U0003

== ENCOUNTER 2020-04-25 10:51 | Outpatient (CLI) | payer BC ==
--- NOTE | 2020-04-25 11:19 | RAD ---
EXAM: Two views chest PROVIDED CLINICAL HISTORY: Dyspnea COMPARISON: None FINDINGS: Cardiac and mediastinal silhouette appears within normal limits. Lungs appear free of significant opa city. No pleural fluid or pneumothorax apparent. IMPRESSION: No evidence for an acute cardiopulmonary process.
== END 2020-04-25 10:52 | disposition home or self-care (01) ==
LOC: BICRAD 10:51
PROVIDERS: ATTEND Internal Medicine Critical Care Medicine
DX: R06.00 Dyspnea, unspecified (principal)
CPT/HCPCS: 71046

== ENCOUNTER 2020-11-18 21:13 | Emergency (ER) | payer BC ==
[2020-11-18 22:30] LABS: #Basophils 0.1 thou/uL (0.0-0.2); #Eosinphils 0.2 thou/uL (0.0-0.7); #Lymphocytes 2.5 thou/uL (1.20-3.40); #Monocytes 0.6 thou/uL (0.11-0.59); #Neutrophils 2.3 thou/uL (1.40-6.50); %Basophils 1.3 % (0.0-1.0); %Eosinophils 3.3 % (0.0-10.0); %Lymphocytes 44.6 % (21.0-51.0); %Monocytes 10.2 % (0.0-10.0); %Neutrophils 40.7 % (42.0-75.0); Hemoglobin 12.4 g/dL (12.0-16.0); Mean Corpuscular HGB CONC 34.7 g/dL (32.0-36.0); Mean Corpuscular Hemoglobin 31.8 pg (27.0-31.0); Mean Corpuscular Volume 91.7 fL (78.0-98.0); Mean Platelet Volume 6.7 fL (7.4-10.4); Platelet Count 305 thou/uL (130-400); RBC Distribution Width 12.3 % (11.5-14.5); White Blood Cell (WBC) Count 5.6 thou/uL (4.8-10.8)
[2020-11-18 22:51] LABS: ALT (SGPT) 22 U/L (8-55); AST (SGOT) 26 U/L (5-34); Albumin 4.6 g/dL (3.5-5.0); Alkaline Phosphatase 47 U/L (40-110); Anion Gap 13 mmol/L (10-20); BUN (Urea Nitrogen) 20 mg/dL (7.0-18.7); Bilirubin, Total 0.4 mg/dL (0.2-1.2); Calc. Creatinine Clearance 0 mL/min (70-130); Calcium 9.9 mg/dL (7.8-10.44); Carbon Dioxide 26 mmol/L (22-29); Chloride 105 mmol/L (98-107); Glucose 99 mg/dL (70-105); Potassium 4.3 mmol/L (3.5-5.1); Protein, Total 7.6 g/dL (6.0-8.3); Sodium 140 mmol/L (136-145)
[2020-11-18 23:44] LABS: INR-International Normal Ratio 2.4; PTT 32.3 sec (22.9-36.1); Prothrombin Time 26.6 sec (12.0-14.7)
[2020-11-19 00:22] LABS: Bilirubin Negative (Negative); Blood, Urine 1+ (Negative); Clarity Clear (Clear); Glucose, Urine (Dipstick) Normal (Negative); Ketone, Urine Negative (Negative); Leukocyte 25 Leu/uL (Negative); Nitrite Negative (Negative); Protein, Urine (Dipstick) Negative (Neg-Trace); RBC/HPF 0-3 HPF (0-3); Specific Gravity, Urine 1.008 (1.002-1.036); Squamous Epithelial 0-3 HPF (0-3); Urobilinogen Normal mg/dL (Less than 2); WBC/HPF 0-3 HPF (0-3); pH, Urine 6.5 (5.0-9.0)
[2020-11-19 00:23] LABS: Bacteria/HPF Rare-Few HPF (None Seen); Pregnancy Test - Urine (BHCG) Negative (Negative); Pregu Control Background? CLEAR/WHITE (CLR/WHITE); Pregu Control Bar Appear? YES (CONTROL BAR); Specific Gravity 1.008 (1.002-1.036)
== END 2020-11-19 02:06 | disposition home or self-care (01) ==
LOC: ERS 21:13
DX: R07.89 Other chest pain (principal); R10.9 Unspecified abdominal pain; Z86.711 Personal history of pulmonary embolism; Z79.01 Long term (current) use of anticoagulants; Z79.899 Other long term (current) drug therapy
CPT/HCPCS: 36415; 71045; 71275; 74177; 80053; 81003; 81015; 81025; 84484; 85025; 85379; 85610; 85730; 93005; Q9967

== ENCOUNTER 2022-02-15 15:46 | Outpatient (CLI) | payer OTHER ==
[2022-02-15 17:11] LABS: #Eosinphils 0.2 10x3/uL (0.0-0.5); #Monocytes 0.5 10x3/uL (0.0-1.1); %Basophils 0.8 % (0.0-2.0); %Eosinophils 4.9 % (0.0-6.0); %Lymphocytes 43.2 % (18.0-47.0); %Monocytes 9.3 % (0.0-10.0); %Neutrophils 41.8 % (40.0-75.0); Hemoglobin 11.6 g/dL (12.0-15.5); Mean Corpuscular HGB CONC 35.3 g/dL (32.0-36.0); Mean Corpuscular Hemoglobin 30.8 pg (27.0-33.0); Mean Corpuscular Volume 87.3 fl (81.6-98.3); Mean Platelet Volume 8.9 fl (7.4-10.4); Platelet Count 286 10x3/uL (150-450); RBC Distribution Width 12.4 % (11.5-14.5); Red Blood Cell (RBC) Count 3.77 10x6/uL (3.90-5.03); White Blood Cell (WBC) Count 4.9 10x3/uL (3.5-10.5)
[2022-02-15 17:30] LABS: INR-International Normal Ratio 2.9; Prothrombin Time 29.5 sec (9.5-12.1)
[2022-02-15 17:32] LABS: BHCG - Serum Negative (NEGATIVE); Pregs Control Background? CLEAR/WHITE (CLR/WHITE); Pregs Control Bar Appear? YES (CONTROL BAR)
== END 2022-02-15 15:47 | disposition home or self-care (01) ==
LOC: LABBT 15:46
PROVIDERS: ATTEND Orthopaedic Surgery
DX: Z01.812 Encounter for preprocedural laboratory examination (principal); M23.306 Other meniscus derangements, unspecified meniscus, right knee; Z20.822 Contact with and (suspected) exposure to COVID-19
CPT/HCPCS: 84703; 85025; 85610; 85730; 87811

== ENCOUNTER 2022-02-20 08:22 | Day surgery (SDC) | payer OTHER ==
[2022-02-19 11:40] VITALS: BMI 26.6
[2022-02-20] MEDS ORDERED: PROPOFOL 20 ML ONE (09:34)
[2022-02-20] MEDS ORDERED: Lidocaine 2% PF 5 ML VIAL ONE (09:35)
[2022-02-20 10:16] LABS: Prothrombin Time 13.3 sec (12.0-14.7)
[2022-02-20 10:17] LABS: PTT 24.7 sec (22.9-36.1)
[2022-02-20] MEDS ORDERED: fentaNYL Citrate/PF 100 MCG/2 ML SYRINGE ONE (11:27)
[2022-02-20] MEDS ORDERED: Sodium Chloride 0.9% 100 ML ONE (11:36)
[2022-02-20] MEDS ORDERED: CEFAZOLIN 2 GM VIAL ONE (11:36)
[2022-02-20] MEDS ORDERED: Glycopyrrolate 0.2 MG/ML 5 ML SYRINGE ONE (11:44)
[2022-02-20] MEDS ORDERED: Lidocaine 2% 20 ml MDV ONE (11:44)
[2022-02-20] MEDS ORDERED: Lidocaine 1% MPF 2 ML VIAL ONE (11:44)
[2022-02-20] MEDS ORDERED: Dexamethasone 20 MG/5 ML VIAL ONE (11:44)
[2022-02-20] MEDS ORDERED: Bupivacaine HCl 0.5%/Epinephrine 1:200,000/PF 30 ml Vial ONE (11:44)
[2022-02-20] MEDS ORDERED: PROPOFOL 200 MG/20 ML VIAL ONE (11:44)
[2022-02-20] MEDS ORDERED: Fentanyl 100 MCG/2 ML VIAL ONE (13:17)
== END 2022-02-20 15:12 | disposition home or self-care (01) ==
LOC: SDC 08:22
PROVIDERS: ATTEND Orthopaedic Surgery
PROC: 0SBC4ZZ Excision of Right Knee Joint, Percutaneous Endoscopic Approach (ICD-10-PCS; principal; 2022-02-20)
PROC: 0SCC4ZZ Extirpation of Matter from Right Knee Joint, Percutaneous Endoscopic Approach (ICD-10-PCS; principal; 2022-02-20)
DX: M79.4 Hypertrophy of (infrapatellar) fat pad (principal); M23.41 Loose body in knee, right knee; M22.41 Chondromalacia patellae, right knee; M19.90 Unspecified osteoarthritis, unspecified site; Z86.711 Personal history of pulmonary embolism; Z79.01 Long term (current) use of anticoagulants; Z79.890 Hormone replacement therapy; Z79.899 Other long term (current) drug therapy
CPT/HCPCS: 85610; 85730; J0690; J1100; J2001; J2704; J3010; J3490

== ENCOUNTER 2022-02-24 18:58 | Observation (INO) | payer OTHER ==
[2022-02-24 19:52] LABS: #Eosinphils 0.3 thou/uL (0.0-0.7); #Lymphocytes 2.9 thou/uL (1.20-3.40); #Monocytes 0.6 thou/uL (0.11-0.59); #Neutrophils 2.1 thou/uL (1.40-6.50); %Basophils 0.6 % (0.0-1.0); %Eosinophils 4.7 % (0.0-10.0); %Lymphocytes 49.4 % (21.0-51.0); %Monocytes 9.5 % (0.0-10.0); %Neutrophils 35.9 % (42.0-75.0); Hemoglobin 11.9 g/dL (12.0-16.0); Mean Corpuscular HGB CONC 34.9 g/dL (32.0-36.0); Mean Corpuscular Hemoglobin 32.6 pg (27.0-31.0); Mean Corpuscular Volume 93.3 fL (78.0-98.0); Mean Platelet Volume 6.4 fL (7.4-10.4); Platelet Count 266 thou/uL (130-400); RBC Distribution Width 11.3 % (11.5-14.5); Red Blood Cell (RBC) Count 3.66 mill/uL (4.20-5.40); White Blood Cell (WBC) Count 5.8 thou/uL (4.8-10.8)
[2022-02-24] MEDS ORDERED: diphenhydrAMINE 50 MG/ML VIAL ONE (19:57)
[2022-02-24] MEDS ORDERED: Metoclopramide HCl 10 MG/2 ML VIAL ONE (19:57)
[2022-02-24] MEDS ORDERED: methylPREDNISolone Sod Succ/PF 125 MG/2 ML VIAL ONE (19:57)
[2022-02-24] MEDS ORDERED: Ketorolac Tromethamine 30 MG/ML VIAL ONE (19:57)
[2022-02-24] MEDS ORDERED: Ketamine 50 MG/ML (10ML VIAL) ONE (21:58)
[2022-02-24] MEDS ORDERED: Magnesium 2 GM/50 ML BAG (IN WATER) ONE (22:00)
[2022-02-24 22:19] LABS: BHCG - Serum Negative (NEGATIVE); Pregs Control Background? CLEAR/WHITE (CLR/WHITE); Pregs Control Bar Appear? YES (CONTROL BAR)
[2022-02-25] MEDS ORDERED: Warfarin Sodium 5 MG TAB PO SCH (01:15)
[2022-02-25] MEDS ORDERED: Valproate Sodium 500 MG in Sodium Chloride 0.9% 100 ML IVPB SCH (01:30)
[2022-02-25] MEDS ORDERED: Bisacodyl 5 MG TAB PO PRN (01:41)
[2022-02-25] MEDS ORDERED: Senokot S 8.6-50 MG TAB PO PRN (01:41)
[2022-02-25 01:55] LABS: INR-International Normal Ratio 1.3; Prothrombin Time 16.1 sec (12.0-14.7)
[2022-02-25] MEDS ORDERED: Enoxaparin Sodium 80 MG/0.8 ML SYRINGE SC SCH (02:30)
[2022-02-25 03:06] VITALS: BMI 26.2
[2022-02-25] MEDS ORDERED: Levothyroxine Sodium 75 MCG TAB PO SCH (06:00)
[2022-02-25] MEDS ORDERED: Warfarin Sodium 3 MG TAB PO SCH (06:00)
[2022-02-25] MEDS ORDERED: Warfarin Sodium 10 MG TAB PO SCH ×2 (06:00→09:00)
[2022-02-25 06:29] LABS: #Lymphocytes 0.7 thou/uL (1.20-3.40); #Monocytes 0.1 thou/uL (0.11-0.59); #Neutrophils 2.9 thou/uL (1.40-6.50); %Basophils 0.2 % (0.0-1.0); %Eosinophils 0.1 % (0.0-10.0); %Lymphocytes 18.8 % (21.0-51.0); %Monocytes 2.2 % (0.0-10.0); %Neutrophils 78.6 % (42.0-75.0); Hemoglobin 12.4 g/dL (12.0-16.0); Mean Corpuscular HGB CONC 34.1 g/dL (32.0-36.0); Mean Corpuscular Hemoglobin 31.8 pg (27.0-31.0); Mean Corpuscular Volume 93.2 fL (78.0-98.0); Mean Platelet Volume 6.6 fL (7.4-10.4); Platelet Count 289 thou/uL (130-400); RBC Distribution Width 11.3 % (11.5-14.5); Red Blood Cell (RBC) Count 3.89 mill/uL (4.20-5.40); White Blood Cell (WBC) Count 3.7 thou/uL (4.8-10.8)
[2022-02-25 06:35] LABS: INR-International Normal Ratio 1.3; PTT 35.7 sec (22.9-36.1); Prothrombin Time 16.3 sec (12.0-14.7)
[2022-02-25 06:57] LABS: Anion Gap 13 mmol/L (10-20); BUN (Urea Nitrogen) 9 mg/dL (7.0-18.7); Calc. Creatinine Clearance 89 mL/min (70-130); Carbon Dioxide 23 mmol/L (22-29); Chloride 107 mmol/L (98-107); Estimated GFR 85; Glucose 126 mg/dL (70-105); Potassium 4.6 mmol/L (3.5-5.1); Sodium 138 mmol/L (136-145)
[2022-02-25] MEDS: Acetaminophen 500 MG TAB PO SCH ×2 (08:23→16:30)
[2022-02-25] MEDS ORDERED: Magnevist 469MG/ML 20 ML VIAL ONE (11:18)
[2022-02-25] MEDS ORDERED: diphenhydrAMINE 50 MG/ML VIAL IVP SCH (14:00)
[2022-02-25] MEDS ORDERED: Enoxaparin Sodium 60 MG/0.6 ML SYRINGE SC SCH (15:00)
[2022-02-25] MEDS ORDERED: Prochlorperazine Edisylate 10 MG in Sodium Chloride 0.9% 50 ML IVPB SCH (15:00)
[2022-02-25 17:39] VITALS: BP 117/72; TEMP 98.3
== END 2022-02-25 18:54 | disposition home or self-care (01) ==
LOC: ERS 18:58 → ERHOLD 02-25 00:21 → T4-B 02-25 01:41
PROVIDERS: ADMIT Internal Medicine; ATTEND Internal Medicine
DX: R51.9 Headache, unspecified (principal); E03.9 Hypothyroidism, unspecified; D68.61 Antiphospholipid syndrome; Z86.711 Personal history of pulmonary embolism; Z86.73 Personal history of transient ischemic attack (TIA), and cerebral infarction without residual deficits; Z79.01 Long term (current) use of anticoagulants; Z79.890 Hormone replacement therapy; Z98.1 Arthrodesis status
CPT/HCPCS: 36415; 70450; 70544; 70553; 80048; 84703; 85025; 85610; 85652; 85730; 86140; 96365; 96367; 96372; 96375; A9579; G0378; J0780; J1200; J1650; J1885; J2765; J2930; J3475; J3490

== ENCOUNTER 2022-07-02 08:50 | Outpatient (CLI) | payer OTHER | END 2022-07-02 08:51 | disposition home or self-care (01) | LOC: TBSIIMAG 08:50 | PROVIDERS: ATTEND Orthopaedic Surgery | DX: M75.102 Unspecified rotator cuff tear or rupture of left shoulder, not specified as traumatic (principal); M25.412 Effusion, left shoulder; M62.89 Other specified disorders of muscle; M25.812 Other specified joint disorders, left shoulder ==

== ENCOUNTER 2022-09-03 10:01 | Emergency (ER) | payer OTHER ==
[2022-09-03 10:44] LABS: #Basophils 0.1 thou/uL (0.0-0.2); #Eosinphils 0.1 thou/uL (0.0-0.7); #Lymphocytes 2.1 thou/uL (1.20-3.40); #Monocytes 0.6 thou/uL (0.11-0.59); %Basophils 0.7 % (0.0-1.0); %Eosinophils 1.9 % (0.0-10.0); %Lymphocytes 31.1 % (21.0-51.0); %Monocytes 8.5 % (0.0-10.0); %Neutrophils 57.8 % (42.0-75.0); Hemoglobin 12.4 g/dL (12.0-16.0); Mean Corpuscular HGB CONC 34.1 g/dL (32.0-36.0); Mean Corpuscular Hemoglobin 31.1 pg (27.0-31.0); Mean Corpuscular Volume 91.1 fl (78.0-98.0); Mean Platelet Volume 6.6 fL (7.4-10.4); Platelet Count 266 10x3/uL (130-400); RBC Distribution Width 11.5 % (11.5-14.5); Red Blood Cell (RBC) Count 3.98 mill/uL (4.20-5.40); White Blood Cell (WBC) Count 6.9 10x3/uL (4.8-10.8)
[2022-09-03 10:57] LABS: INR-International Normal Ratio 2.9; PTT 32.4 sec (22.9-36.1)
[2022-09-03 11:03] LABS: ALT (SGPT) 20 U/L (8-55); AST (SGOT) 25 U/L (5-34); Albumin 4.4 g/dL (3.5-5.0); Alkaline Phosphatase 50 U/L (40-110); Anion Gap 11 mmol/L (10-20); BUN (Urea Nitrogen) 14 mg/dL (7.0-18.7); Bilirubin, Total 0.5 mg/dL (0.2-1.2); CRP (Inflammatory) Less than 0.50 mg/dL (= or < 0.5); Calc. Creatinine Clearance 0 mL/min (70-130); Calcium 9.1 mg/dL (7.8-10.44); Carbon Dioxide 25 mmol/L (22-29); Chloride 104 mmol/L (98-107); Estimated GFR 79; Globulin 2.7 g/dL (2.4-3.5); Glucose 97 mg/dL (70-105); Protein, Total 7.1 g/dL (6.0-8.3); Sodium 136 mmol/L (136-145)
[2022-09-03 11:11] LABS: BHCG - Serum Negative (NEGATIVE); Pregs Control Background? CLEAR/WHITE (CLR/WHITE); Pregs Control Bar Appear? YES (CONTROL BAR)
[2022-09-03] MEDS ORDERED: Ketorolac Tromethamine 30 MG/ML VIAL ONE (11:30)
[2022-09-03] MEDS ORDERED: Metoclopramide HCl 10 MG/2 ML VIAL ONE (11:30)
== END 2022-09-03 12:30 | disposition home or self-care (01) ==
LOC: ERS 10:01
DX: R51.9 Headache, unspecified (principal)
CPT/HCPCS: 36415; 80053; 83735; 84703; 85025; 85610; 85652; 85730; 86140; 96365; 96375; J1885; J2765

== ENCOUNTER 2022-11-18 10:53 | Outpatient (CLI) | payer OTHER | END 2022-11-18 10:54 | disposition home or self-care (01) | LOC: BICMRI 10:53 | PROVIDERS: ATTEND Orthopaedic Surgery | DX: M47.812 Spondylosis without myelopathy or radiculopathy, cervical region (principal); Z98.890 Other specified postprocedural states | CPT/HCPCS: 72052 ==

== ENCOUNTER 2023-02-01 13:03 | Emergency (ER) | payer OTHER ==
[2023-02-01] MEDS ORDERED: Lidocaine 1% w/Epinephrine 1:100K 20 ML VIAL ONE ×2 (13:44→14:30)
[2023-02-01] MEDS ORDERED: Morphine 4 MG/ML VIAL ONE (13:53)
[2023-02-01] MEDS ORDERED: CEFAZOLIN 2 GM VIAL ONE (13:53)
[2023-02-01] MEDS ORDERED: Boostrix 0.5 ML (Tdap) VIAL (>/=7 yrs of age) ONE (13:53)
[2023-02-01 14:07] LABS: #Basophils 0.1 thou/uL (0.0-0.2); #Eosinphils 0.1 thou/uL (0.0-0.7); #Monocytes 0.6 thou/uL (0.11-0.59); #Neutrophils 3.9 thou/uL (1.40-6.50); %Basophils 0.8 % (0.0-1.0); %Eosinophils 1.6 % (0.0-10.0); %Lymphocytes 27.1 % (21.0-51.0); %Monocytes 9.3 % (0.0-10.0); Hematocrit 34.8 % (36.0-47.0); Hemoglobin 11.8 g/dL (12.0-16.0); Mean Corpuscular HGB CONC 33.9 g/dL (32.0-36.0); Mean Corpuscular Volume 91.3 fl (78.0-98.0); Mean Platelet Volume 8.7 fL (7.4-10.4); Platelet Count 245 10x3/uL (130-400); RBC Distribution Width 12.6 % (11.5-14.5); Red Blood Cell (RBC) Count 3.81 mill/uL (4.20-5.40); White Blood Cell (WBC) Count 6.4 10x3/uL (4.8-10.8)
[2023-02-01 14:28] LABS: INR-International Normal Ratio 1.9; PTT 30.3 sec (22.9-36.1); Prothrombin Time 22.9 sec (12.0-14.7)
[2023-02-01] MEDS ORDERED: Bacitracin 1 PK ONE (15:31)
[2023-02-01] MEDS ORDERED: HYDROcodone/Acetaminophen 5/325 mg Tablet ONE (15:31)
== END 2023-02-01 15:35 | disposition home or self-care (01) ==
LOC: ERS 13:03
DX: S81.011A Laceration without foreign body, right knee, initial encounter (principal); S93.501A Unspecified sprain of right great toe, initial encounter; V19.9XXA Pedal cyclist (driver) (passenger) injured in unspecified traffic accident, initial encounter; Z23 Encounter for immunization
CPT/HCPCS: 12002; 36415; 85025; 85610; 85730; 90471; 90715; 96365; 96375; J2270

== ENCOUNTER 2023-02-05 13:49 | Emergency (ER) | payer OTHER ==
[~2023-02-05 13:49] MED LIST changes: -Iopamidol-370 76% 500 ML 1 ML ONE; +Iopamidol-370 76% 500 ML MDV (1 ML CHARGE) ONE
[2023-02-05 15:18] LABS: #Eosinphils 0.3 thou/uL (0.0-0.7); #Monocytes 0.6 thou/uL (0.11-0.59); #Neutrophils 2.6 thou/uL (1.40-6.50); %Basophils 0.6 % (0.0-1.0); %Eosinophils 5.3 % (0.0-10.0); %Lymphocytes 33.5 % (21.0-51.0); %Monocytes 10.7 % (0.0-10.0); %Neutrophils 49.7 % (42.0-75.0); Hematocrit 35.6 % (36.0-47.0); Hemoglobin 12.2 g/dL (12.0-16.0); Mean Corpuscular HGB CONC 34.3 g/dL (32.0-36.0); Mean Corpuscular Hemoglobin 31.2 pg (27.0-31.0); Mean Platelet Volume 8.6 fL (7.4-10.4); Platelet Count 244 10x3/uL (130-400); RBC Distribution Width 12.8 % (11.5-14.5); Red Blood Cell (RBC) Count 3.91 mill/uL (4.20-5.40); White Blood Cell (WBC) Count 5.1 10x3/uL (4.8-10.8)
[2023-02-05 15:31] LABS: INR-International Normal Ratio 2.1; PTT 34.4 sec (22.9-36.1); Prothrombin Time 24.9 sec (12.0-14.7)
[2023-02-05 15:44] LABS: ALT (SGPT) 20 U/L (8-55); AST (SGOT) 29 U/L (5-34); Albumin 4.5 g/dL (3.5-5.0); Alkaline Phosphatase 53 U/L (40-110); Anion Gap 11 mmol/L (10-20); BUN (Urea Nitrogen) 12 mg/dL (7.0-18.7); Bilirubin, Total 0.4 mg/dL (0.2-1.2); Calc. Creatinine Clearance 0 mL/min (70-130); Calcium 9.8 mg/dL (7.8-10.44); Carbon Dioxide 29 mmol/L (22-29); Chloride 101 mmol/L (98-107); Estimated GFR 91; Glucose 89 mg/dL (70-105); Magnesium 2.2 mg/dL (1.6-2.6); Potassium 3.8 mmol/L (3.5-5.1); Protein, Total 7.5 g/dL (6.0-8.3); Sodium 137 mmol/L (136-145)
[2023-02-05 15:48] LABS: Troponin I Less than 0.010 ng/mL (< 0.028)
[2023-02-05] MEDS ORDERED: Aspirin Chewable 81 MG TAB ONE (17:07)
== END 2023-02-05 19:05 | disposition home or self-care (01) ==
LOC: ERS 13:49
DX: S81.001A Unspecified open wound, right knee, initial encounter (principal); I82.401 Acute embolism and thrombosis of unspecified deep veins of right lower extremity; Z79.01 Long term (current) use of anticoagulants
CPT/HCPCS: 71275; 80053; 83735; 83880; 84484; 85025; 85379; 85610; 85730; 93005; Q9967

== ENCOUNTER 2023-05-06 11:11 | Outpatient (CLI) | payer OTHER | END 2023-05-06 11:12 | disposition home or self-care (01) | LOC: BICMRI 11:11 | PROVIDERS: ATTEND Nurse Practitioner Family | DX: M54.81 Occipital neuralgia (principal); M47.812 Spondylosis without myelopathy or radiculopathy, cervical region | CPT/HCPCS: 72141 ==

== ENCOUNTER 2023-05-06 12:38 | Outpatient (CLI) | payer OTHER | END 2023-05-06 12:39 | disposition home or self-care (01) | LOC: ULT 12:38 | PROVIDERS: ATTEND Family Medicine | DX: I82.409 Acute embolism and thrombosis of unspecified deep veins of unspecified lower extremity (principal) ==

== ENCOUNTER 2023-05-18 16:39 | Emergency (ER) | payer OTHER ==
[2023-05-18] MEDS ORDERED: Acetaminophen 500 MG TAB ONE (18:40)
== END 2023-05-18 19:13 | disposition home or self-care (01) ==
LOC: ERS 16:39
DX: R29.91 Unspecified symptoms and signs involving the musculoskeletal system (principal)
CPT/HCPCS: 70450; 71045; 72072; 72100; 72125; 72128

== ENCOUNTER 2023-05-21 10:20 | Emergency (ER) | payer OTHER ==
[2023-05-21] MEDS ORDERED: Iopamidol-370 76% 500 ML MDV (1 ML CHARGE) ONE (10:45)
[2023-05-21 10:57] LABS: #Eosinphils 0.1 thou/uL (0.0-0.7); #Monocytes 0.5 thou/uL (0.11-0.59); #Neutrophils 2.1 thou/uL (1.40-6.50); %Basophils 0.4 % (0.0-1.0); %Eosinophils 2.5 % (0.0-10.0); %Lymphocytes 42.7 % (21.0-51.0); %Monocytes 10.1 % (0.0-10.0); %Neutrophils 44.3 % (42.0-75.0); Hematocrit 35.1 % (36.0-47.0); Mean Corpuscular HGB CONC 34.2 g/dL (32.0-36.0); Mean Corpuscular Hemoglobin 30.6 pg (27.0-31.0); Mean Corpuscular Volume 89.5 fl (78.0-98.0); Mean Platelet Volume 8.5 fL (7.4-10.4); Platelet Count 269 10x3/uL (130-400); RBC Distribution Width 12.7 % (11.5-14.5); Red Blood Cell (RBC) Count 3.92 mill/uL (4.20-5.40); White Blood Cell (WBC) Count 4.8 10x3/uL (4.8-10.8)
[2023-05-21 11:14] LABS: PTT 39.5 sec (22.9-36.1)
[2023-05-21 11:15] LABS: D-Dimer Test 0.56 *mcg/mL (0.27-0.43); INR-International Normal Ratio 3.1; Prothrombin Time 33.6 sec (12.0-14.7)
[2023-05-21 11:21] LABS: ALT (SGPT) 18 U/L (8-55); AST (SGOT) 24 U/L (5-34); Albumin 4.7 g/dL (3.5-5.0); Alkaline Phosphatase 53 U/L (40-110); Anion Gap 12 mmol/L (10-20); BUN (Urea Nitrogen) 6 mg/dL (7.0-18.7); Bilirubin, Total 0.5 mg/dL (0.2-1.2); Calc. Creatinine Clearance 0 mL/min (70-130); Calcium 9.5 mg/dL (7.8-10.44); Carbon Dioxide 26 mmol/L (22-29); Chloride 101 mmol/L (98-107); Estimated GFR 83; Glucose 95 mg/dL (70-105); Lipase 42 U/L (8-78); Potassium 3.7 mmol/L (3.5-5.1); Protein, Total 7.7 g/dL (6.0-8.3); Sodium 135 mmol/L (136-145)
[2023-05-21 11:26] LABS: Troponin I Less than 0.010 ng/mL (< 0.028)
[2023-05-21] MEDS ORDERED: Prochlorperazine 10 MG/2 ML VIAL ONE (11:50)
[2023-05-21] MEDS ORDERED: diphenhydrAMINE 50 MG/ML VIAL ONE (11:50)
[2023-05-21] MEDS ORDERED: Magnesium 2 GM/50 ML BAG (IN WATER) ONE (11:50)
[2023-05-21 14:32] LABS: Troponin I Less than 0.010 ng/mL (< 0.028)
== END 2023-05-21 15:13 | disposition home or self-care (01) ==
LOC: ERS 10:20
DX: R07.89 Other chest pain (principal); R51.9 Headache, unspecified; R29.710 NIHSS score 10
CPT/HCPCS: 36415; 70450; 71045; 71275; 80053; 83690; 84484; 85025; 85379; 85610; 85730; 93005; 94760; 96365; 96366; 96368; J0780; J1200; J3475; Q9967

== ENCOUNTER 2023-07-21 14:35 | Outpatient (CLI) | payer OTHER | END 2023-07-21 14:36 | disposition home or self-care (01) | LOC: BICRAD 14:35 | PROVIDERS: ATTEND Specialist | DX: S20.219A Contusion of unspecified front wall of thorax, initial encounter (principal) ==

== ENCOUNTER 2023-10-24 15:18 | Outpatient (CLI) | payer OTHER | END 2023-10-24 15:19 | disposition home or self-care (01) | LOC: SCSMRI 15:18 | PROVIDERS: ATTEND Orthopaedic Surgery | DX: M75.102 Unspecified rotator cuff tear or rupture of left shoulder, not specified as traumatic (principal); S46.812A Strain of other muscles, fascia and tendons at shoulder and upper arm level, left arm, initial encounter; M75.122 Complete rotator cuff tear or rupture of left shoulder, not specified as traumatic; S43.402A Unspecified sprain of left shoulder joint, initial encounter; M67.814 Other specified disorders of tendon, left shoulder ==

== ENCOUNTER 2023-11-19 12:20 | Outpatient (CLI) | payer OTHER ==
[2023-11-19 14:01] LABS: #Basophils 0.04 10x3/uL (0.0-0.2); #Eosinphils 0.16 10x3/uL (0.0-0.5); #Monocytes 0.39 10x3/uL (0.0-1.1); #Neutrophils 2.35 10x3/uL (1.5-8.4); %Basophils 0.8 % (0.0-2.0); %Eosinophils 3.1 % (0.0-6.0); %Lymphocytes 42.2 % (18.0-47.0); %Monocytes 7.6 % (0.0-10.0); %Neutrophils 45.9 % (40.0-75.0); Hematocrit 37.7 % (34.9-44.5); Mean Corpuscular HGB CONC 34.5 g/dL (32.0-36.0); Mean Corpuscular Hemoglobin 30.5 pg (27.0-33.0); Mean Corpuscular Volume 88.5 fL (81.6-98.3); Mean Platelet Volume 9.1 fL (7.4-10.4); Platelet Count 276 10x3/uL (150-450); RBC Distribution Width 12.8 % (11.5-14.5); Red Blood Cell (RBC) Count 4.26 10x6/uL (3.90-5.03); White Blood Cell (WBC) Count 5.1 10x3/uL (3.5-10.5)
[2023-11-19 14:16] LABS: Anion Gap 13 mmol/L (10-20); BUN (Urea Nitrogen) 10 mg/dL (7.0-18.7); Calc. Creatinine Clearance 0 mL/min (70-130); Calcium 9.5 mg/dL (7.8-10.44); Carbon Dioxide 27 mmol/L (22-29); Chloride 105 mmol/L (98-107); Estimated GFR 78; Glucose 86 mg/dL (70-105); Potassium 4.2 mmol/L (3.5-5.1); Sodium 141 mmol/L (136-145)
[2023-11-19 14:22] LABS: INR-International Normal Ratio 3.3; Prothrombin Time 32.8 sec (9.5-12.1)
== END 2023-11-19 12:21 | disposition home or self-care (01) ==
LOC: LABBT 12:20
PROVIDERS: ATTEND Orthopaedic Surgery
DX: Z01.818 Encounter for other preprocedural examination (principal); M75.102 Unspecified rotator cuff tear or rupture of left shoulder, not specified as traumatic; M75.22 Bicipital tendinitis, left shoulder
CPT/HCPCS: 80048; 85025; 85610; 93005; 93010

== ENCOUNTER 2023-11-27 06:50 | Day surgery (SDC) | payer OTHER ==
[2023-11-19 12:46] VITALS: BMI 26.6
[2023-11-27] MEDS ORDERED: Lidocaine 1% MPF 2 ML VIAL ONE (08:20)
[2023-11-27] MEDS ORDERED: Bupivacaine PF 0.5% 30 ML VIAL ONE (08:20)
[2023-11-27] MEDS ORDERED: fentaNYL 50 mcg/mL 1 mL Vial ONE ×3 (08:20→14:11)
[2023-11-27] MEDS ORDERED: Midazolam HCl 2 mg/2 ml Vial ONE (08:20)
[2023-11-27] MEDS ORDERED: EPINEPHrine 1 MG/ML VIAL ONE (10:09)
[2023-11-27] MEDS ORDERED: Bupivacaine 0.25% HCL 30 ML VIAL ONE (10:09)
[2023-11-27] MEDS ORDERED: CEFAZOLIN 2 GM VIAL ONE (10:18)
[2023-11-27] MEDS ORDERED: Sodium Chloride 0.9% 100 ML ONE (10:18)
[2023-11-27] MEDS ORDERED: Lidocaine 2% PF 5 ML VIAL ONE (10:26)
[2023-11-27] MEDS ORDERED: PROPOFOL 20 ML ONE (10:26)
[2023-11-27] MEDS ORDERED: Ondansetron PF 4 MG/2 ML Vial IVP PRN (10:30)
[2023-11-27] MEDS ORDERED: Ketorolac Tromethamine 30 MG (1 mL) VIAL IVP PRN (10:30)
[2023-11-27] MEDS ORDERED: HYDROcodone/Acetaminophen 5/325 mg Tablet PO PRN ×2 (10:30)
[2023-11-27] MEDS ORDERED: Ropivacaine 0.2% 550 ML 550 ML NERVE BLCK SCH (10:30)
[2023-11-27] MEDS ORDERED: traMADol HCl 50 MG TAB PO PRN ×2 (10:30)
[2023-11-27] MEDS ORDERED: Zolpidem Tartrate 5 MG TAB PO PRN (10:30)
[2023-11-27] MEDS ORDERED: Promethazine HCl 25 MG/ML VIAL IM PRN (10:30)
[2023-11-27] MEDS ORDERED: Communication Order-Pharmacy FS PRN (10:32)
[2023-11-27] MEDS ORDERED: Dexamethasone 20 MG/5 ML VIAL ONE (10:40)
[2023-11-27] MEDS ORDERED: Ketorolac Tromethamine 30 MG (1 mL) VIAL ONE (10:40)
[2023-11-27] MEDS ORDERED: Ondansetron PF 4 MG/2 ML Vial ONE (10:40)
[2023-11-27] MEDS ORDERED: ePHEDrine Sulfate 50 MG/10 ML VIAL ONE (10:52)
[2023-11-27] MEDS ORDERED: Glycopyrrolate 0.2 MG/ML 5 ML SYRINGE ONE (10:53)
[2023-11-27] MEDS ORDERED: HYDROmorphone 2 MG/ML VIAL ONE (10:54)
[2023-11-27] MEDS ORDERED: PHENYLEPHRINE-NS 100 MCG/ML 10 ML SYRINGE ONE (11:08)
== END 2023-11-27 15:50 | disposition home or self-care (01) ==
LOC: SDC 06:50
PROVIDERS: ATTEND Orthopaedic Surgery
PROC: 3E0T3BZ Introduction of Anesthetic Agent into Peripheral Nerves and Plexi, Percutaneous Approach (ICD-10-PCS; principal; 2023-11-27)
PROC: 0RBK4ZZ Excision of Left Shoulder Joint, Percutaneous Endoscopic Approach (ICD-10-PCS; principal; 2023-11-27)
PROC: 0LS40ZZ Reposition Left Upper Arm Tendon, Open Approach (ICD-10-PCS; principal; 2023-11-27)
PROC: 0LM24ZZ Reattachment of Left Shoulder Tendon, Percutaneous Endoscopic Approach (ICD-10-PCS; 2023-11-27)
DX: M75.122 Complete rotator cuff tear or rupture of left shoulder, not specified as traumatic (principal); M75.22 Bicipital tendinitis, left shoulder; S43.432A Superior glenoid labrum lesion of left shoulder, initial encounter; M19.012 Primary osteoarthritis, left shoulder; Z86.711 Personal history of pulmonary embolism; X58.XXXA Exposure to other specified factors, initial encounter
CPT/HCPCS: 85610; A4306; C1713; J0171; J0665; J1100; J1170; J1885; J2001; J2250; J2405; J2704; J2795; J3010; J3490

== ENCOUNTER 2024-04-14 14:10 | Outpatient (CLI) | payer OTHER | END 2024-04-14 14:11 | disposition home or self-care (01) | LOC: SCSMRI 14:10 | PROVIDERS: ATTEND Orthopaedic Surgery | DX: M25.512 Pain in left shoulder (principal); M25.412 Effusion, left shoulder; M24.112 Other articular cartilage disorders, left shoulder ==

== ENCOUNTER 2025-05-06 08:59 | Outpatient (CLI) | payer OTHER ==
[2025-05-06 10:15] LABS: #Basophils 0.04 10x3/uL (0.0-0.2); #Eosinophils 0.17 10x3/uL (0.0-0.7); #Monocytes 0.53 10x3/uL (0.11-0.59); #Neutrophils 3.28 10x3/uL (1.40-6.50); %Basophils 0.7 % (0.0-1.0); %Eosinophils 2.8 % (0.0-10.0); %Lymphocytes 33.5 % (21.0-51.0); %Monocytes 8.7 % (0.0-10.0); %Neutrophils 54.1 % (42.0-75.0); Hematocrit 35.8 % (36.0-47.0); Hemoglobin 12.0 g/dL (12.0-16.0); Mean Corpuscular Hemoglobin 30.3 pg (27.0-31.0); Mean Corpuscular Volume 90.4 fL (78.0-98.0); Platelet Count 264 10x3/uL (130-400); Red Blood Cell (RBC) Count 3.96 mill/uL (4.20-5.40); White Blood Cell (WBC) Count 6.06 10x3/uL (4.8-10.8)
[2025-05-06 10:23] LABS: Glucose, Urine (Dipstick) Negative (Negative); Leukocyte Negative (Negative); Protein, Urine (Dipstick) Negative (Neg-Trace); Specific Gravity, Urine Less/Equal 1.005 (1.005-1.030)
[2025-05-06 10:30] LABS: Bacteria/HPF None Seen HPF (None Seen); RBC/HPF None Seen HPF (0-3); WBC/HPF 0-3 HPF (0-3)
[2025-05-06 10:33] LABS: INR-International Normal Ratio 2.1; Prothrombin Time 23.4 sec (12.0-14.7)
[2025-05-06 10:35] LABS: Anion Gap 10 mmol/L (10-20); BUN (Urea Nitrogen) 20 mg/dL (7.0-18.7); Calc. Creatinine Clearance 0 mL/min (70-130); Calcium 9.3 mg/dL (7.8-10.44); Carbon Dioxide 28 mmol/L (22-29); Chloride 101 mmol/L (98-107); Glucose 91 mg/dL (70-105); Potassium 3.9 mmol/L (3.5-5.1); Sodium 135 mmol/L (136-145)
== END 2025-05-06 09:00 | disposition home or self-care (01) ==
LOC: LABBT 08:59
PROVIDERS: ATTEND Orthopaedic Surgery
DX: Z01.818 Encounter for other preprocedural examination (principal); M17.11 Unilateral primary osteoarthritis, right knee
CPT/HCPCS: 71046; 80048; 81001; 85025; 85610; 87081; 93005; 93010

== ENCOUNTER 2025-05-06 09:38 | Outpatient (CLI) | payer OTHER | END 2025-05-06 09:39 | disposition home or self-care (01) | LOC: CT 09:38 | PROVIDERS: ATTEND Orthopaedic Surgery | DX: Z01.818 Encounter for other preprocedural examination (principal); M17.11 Unilateral primary osteoarthritis, right knee ==